=== PATIENT | female | born 2000 | race Caucasian/White ===

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

== ENCOUNTER 2020-05-28 21:20 | Inpatient (IN) ==
[2020-05-28 21:48] LABS: Bilirubin,Urine Negative (Negative); Blood,Urine Small (Negative); Clarity,Urine Clear (Clear); Color,Urine Colorless (Yellow); Glucose,Urine (UA) Normal (Normal); Ketones,Urine Negative (Negative); Leukocyte Esterase,Urine Negative (Negative); Nitrite,Urine Negative (Negative); Protein,Urine Negative (Neg-Trace); RBC,Urine 0-3 per hpf (0-3); Specific Gravity,Urine 1.018 (1.010-1.025); Squamous Epithelial Cell,Urine Few per hpf (None-Few); Urobilinogen,Urine Normal (Normal)
[2020-05-28 21:51] LABS: Amphetamine Screen,Urine Negative ng/mL (Cutoff=1000); Barbiturate Screen,Urine Negative ng/mL (Cutoff=200); Benzodiazepines Screen,Urine Negative ng/mL (Cutoff=200); Cannabinoid Screen,Urine Negative ng/mL (Cutoff = 50); Cocaine Screen,Urine Negative ng/mL (Cutoff= 300); Opiate Screen,Urine Negative ng/mL (Cutoff=300); Phencyclidine Screen,Urine Negative ng/mL (Cutoff=25)
[2020-05-28 22:27] LABS: Basophils # 0.1 K/mcL (0.0-0.2); Basophils % 0.4 %; Eosinophils # 0.1 K/mcL (0.0-0.6); Eosinophils % 0.8 %; Hematocrit 41.6 % (35.3-44.9); Hemoglobin 13.1 g/dL (11.5-15.4); Immature Granulocytes % 0.7 % (0-4); Lymphocytes # 3.2 K/mcL (0.6-4.6); Lymphocytes % 26.9 %; Mean Corpuscular HGB Conc 31.5 g/dL (31.6-35.5); Mean Corpuscular Hemoglobin 26.2 pg (28.0-33.3); Mean Corpuscular Volume 83.2 fL (83.0-100.0); Mean Platelet Volume 9.7 fL (9.4-12.4); Monocytes # 0.6 K/mcL (0.0-1.3); Monocytes % 5.2 %; Neutrophils # 7.8 K/mcL (1.6-8.9); Platelet Count 389 K/mcL (140-400); Red Cell Distribution Width 13.7 % (11.5-14.5); White Blood Count 11.8 K/mcL (4.3-11.1)
[2020-05-28 22:34] LABS: Estimated Average Glucose 117 mg/dl
[2020-05-28 23:16] LABS: Thyroid Stimulating Hormone 2.697 mcIU/mL (0.340-5.600)
[2020-05-28 23:17] LABS: BUN/Creatinine Ratio 31 (6-26); Blood Urea Nitrogen 12 mg/dL (6-20); Carbon Dioxide 17 mEq/L (23-29); Chloride 107 mEq/L (98-107); Glucose 99 mg/dL (70-105); Osmolality,Calculated 290 (280-300); Potassium 3.6 mEq/L (3.5-5.1); Sodium 140 mEq/L (136-145); eGFR For African Americans > 60 (> 60); eGFR For Non-African Americans > 60 (> 60)
[2020-05-29] LABS: Acetaminophen < 10 mcg/mL (10-20); Chol/HDL Ratio 3.2 (0-4.9); Cholesterol 144 mg/dL (< 200); Ethanol < 10 mg/dL (Less than 10); HDL Cholesterol 45 mg/dL (40-59); LDL Cholesterol,Calculated 85 mg/dL (< 100); Salicylate < 2.5 mg/dL (15.0-30.0); Triglycerides 68 mg/dL (< 150)
[2020-05-29] MEDS ORDERED: Nicotine 7 MG PATCH.TD24 TD ONE (00:04)
[2020-05-29] MEDS ORDERED: MOM Conc 10 ML UD.LIQ PO PRN (01:35)
[2020-05-29] MEDS ORDERED: *HR* LORazepam 2 MG/ML VIAL IM PRN (01:35)
[2020-05-29] MEDS ORDERED: Haloperidol Lactate 5 MG/ML VIAL IM PRN (01:38)
[2020-05-29] MEDS ORDERED: haloperidoL 5 MG TABLET PO PRN (01:38)
[2020-05-29] MEDS ORDERED: Ondansetron ODT 4 MG TAB.RAPDIS SL ONE (01:45)
[2020-05-29] MEDS: hydrOXYzine pamoate 25 MG CAPSULE PO PRN ×2 (03:19→11:28)
[2020-05-29] MEDS: Nicotine 21 MG PATCH.TD24 TD SCH (10:40)
[2020-05-29] MEDS ORDERED: Ziprasidone 10 MG in Water for inj. (sterile) 0.5 ML IM PRN (11:04)
[2020-05-29] MEDS: Budesonide/Formoterol 160/4.5 1 PUFF INH IH SCH ×2 (12:04→21:10)
[2020-05-29] MEDS: Acetaminophen 325 MG TABLET PO PRN (15:03)
[2020-05-29] MEDS: OLANZapine 5 MG TAB.RAPDIS PO PRN ×2 (16:25→22:12)
[2020-05-29] MEDS: *HR* LORazepam 1 MG TABLET PO PRN ×2 (16:26→22:12)
[2020-05-29] MEDS: traZODone 50 MG TABLET PO PRN (21:09)
[2020-05-29] MEDS: ARIPiprazole 5 MG TABLET PO SCH (21:09)
[2020-05-30] MEDS: Budesonide/Formoterol 160/4.5 1 PUFF INH IH SCH ×2 (10:06→22:22)
[2020-05-30] MEDS: Nicotine 21 MG PATCH.TD24 TD SCH (10:06)
[2020-05-30] MEDS: OLANZapine 5 MG TAB.RAPDIS PO PRN (11:12)
[2020-05-30] MEDS: Acetaminophen 325 MG TABLET PO PRN (11:13)
[2020-05-30] MEDS: *HR* LORazepam 1 MG TABLET PO PRN (11:13)
[2020-05-30] MEDS: hydrOXYzine pamoate 25 MG CAPSULE PO PRN (20:06)
[2020-05-30] MEDS: traZODone 50 MG TABLET PO PRN (20:06)
[2020-05-30] MEDS: ARIPiprazole 5 MG TABLET PO SCH (20:06)
[2020-05-31] MEDS: Nicotine 21 MG PATCH.TD24 TD SCH (08:39)
[2020-05-31] MEDS: Budesonide/Formoterol 160/4.5 1 PUFF INH IH SCH (09:14)
[2020-05-31 09:30] VITALS: BP 137/82
== END 2020-05-31 11:50 | disposition home or self-care (01) | DRG 750 ==
LOC: EMEROOARM 21:20 → 1ANU 05-29 01:18
PROVIDERS: ADMIT Psychiatry & Neurology Psychiatry; ATTEND Psychiatry & Neurology Psychiatry